=== PATIENT | male | born 1975 ===

== ENCOUNTER 2021-09-16 16:56 | Emergency (ER) | payer BC ==
[2021-09-16] MEDS ORDERED: Diphtheria,Pertussis(Acell),Tetanus Vaccine 0.5 ML Syringe IM ONE (17:08)
[2021-09-16] MEDS ORDERED: Bacitracin/Neomycin/Polymyxin B Oint 0.9 GM U/D Packet ONE (17:14)
== END 2021-09-16 18:06 | disposition home or self-care (01) ==
LOC: CC.ED 16:56
DX: S61.012A Laceration without foreign body of left thumb without damage to nail, initial encounter (principal); Z23 Encounter for immunization; W26.0XXA Contact with knife, initial encounter
CPT/HCPCS: 12002; 90471; 90715; 99282-25